=== PATIENT | female | born 1970 | race Caucasian/White ===

== ENCOUNTER 2024-08-07 19:47 | Emergency (ER) | payer OTHER ==
[~2024-08-07] VITALS: Ht 165.1 cm; Wt 95.3 kg
[2024-08-07] MEDS ORDERED: AMOX TR-K CLV1 EAC2 PO (23:23)
[2024-08-07] MEDS: AMOXICILLIN/CLAVULANATE K 875 MG TAB PO STA (23:25)
[2024-08-07] MEDS: TETANUS/DIPHTHERIA TOX ADULT 0.5 ML SYR IM ONE (23:28)
[2024-08-07 23:32] VITALS: PULSE 88; RESP 16; TEMP 97.9; O2SAT 98
== END 2024-08-07 23:35 | disposition home or self-care (01) ==
LOC: FSED 20:24
DX: S70.371A Other superficial bite of right thigh, initial encounter (principal); W54.0XXA Bitten by dog, initial encounter; Y92.89 Other specified places as the place of occurrence of the external cause
CPT/HCPCS: 81025; 90471; 90714; 99283